=== PATIENT | male | born 1970 | race Hispanic/Latino ===

== ENCOUNTER 2017-07-22 14:18 | Emergency (ER) | payer OTHER ==
[2017-07-22 14:19] VITALS: BMI 24.3
[2017-07-22 15:39] VITALS: RESP 20
--- NOTE | 2017-07-22 17:34 | C.PDOC ---
History Of Present Illness PATIENT WAITING FOR OVER 3 HOURS IN THE WAITING AREA PRIOR TO MY EVALUATION. 47 year old male presents to the emergency department complaining of lower abdominal pain, ongoing for 3 days. Pain is localized to the suprapubic region, intermittent, and worsens with bowel movements. Pain is associated with nausea and diarrhea that is green in color. Of note, patient has been on doxycycline for 5 days, was recently diagnosed with syphilis. Denies any chest pain, shortness of breath, dizziness, fever, or urinary symptoms. Time Seen by Provider: 07/22/17 17:33 Chief Complaint (Nursing): Abdominal Pain History Per: Patient History/Exam Limitations: no limitations Onset/Duration Of Symptoms: Days (x3) Current Symptoms Are (Timing): Still Present Past Medical History Reviewed: Historical Data, Nursing Documentation, Vital Signs Vital Signs: Last Vital Signs Temp 98.7 F 07/22/17 15:36 Pulse 101 H 07/22/17 15:36 Resp 20 07/22/17 15:36 BP 116/78 07/22/17 15:36 Pulse Ox 96 07/22/17 17:58 - Medical History PMH: Asthma, HIV, Sexually Transmitted Disease (syphilis) Family History: States: Unknown Family Hx - Social History Hx Alcohol Use: No Hx Substance Use: No - Immunization History Hx Tetanus Toxoid Vaccination: Yes Hx Influenza Vaccination: Yes Hx Pneumococcal Vaccination: Yes Review Of Systems Except As Marked, All Systems Reviewed And Found Negative. Constitutional: Negative for: Fever Cardiovascular: Negative for: Chest Pain Respiratory: Negative for: Shortness of Breath Gastrointestinal: Positive for: Nausea, Abdominal Pain, Diarrhea. Negative for : Vomiting Neurological: Negative for: Dizziness Physical Exam - Physical Exam Appears: Non-toxic, In Acute Distress (moderate distress) Skin: Normal Color, Warm, Other (Good turgor) Head: Atraumatic, Normacephalic Eye(s): bilateral: Normal Inspection, PERRL, EOMI Oral Mucosa: Moist Neck: Normal ROM, Supple Chest: Symmetrical Cardiovascular: Rhythm Regular Respiratory: Normal Breath Sounds, No Rales, No Rhonchi, No Wheezing Gastrointestinal/Abdominal: Soft, Tenderness (to the bilateral lower quadrants and suprapubic region), Distention (mild distension and bloating), No Guarding, No Rebound Extremity: Bilateral: Atraumatic, Normal Color And Temperature Neurological/Psych: Oriented x3, Normal Speech ED Course And Treatment - Laboratory Results Result Diagrams: 07/22/17 17:54 07/22/17 17:54 O2 Sat by Pulse Oximetry: 96 (RA) Pulse Ox Interpretation: Normal Medical Decision Making Medical Decision Making: Time: 17:43 Initial Plan: * Labs * Sodium chloride IV 1000 ml at 250 mls/hr * Zofran 4 mg IV * Bentyl 20 mg IM * CT Abd/Pelvis with PO & IV contrast Disposition - Disposition Disposition Time: 19:00 Condition: STABLE Forms: [employer] (Faroese) - Clinical Impression Clinical Impression: Abdominal pain, Diarrhea, Nausea - Scribe Statement The provider has reviewed the documentation as recorded by the Noah Jerome Provider Attestation: All medical record entries made by the Derejeibpenny were at my direction and personally dictated by me. I have reviewed the chart and agree that the record accurately reflects my personal performance of the history, physical exam, medical decision making, and the department course for this patient. I have also personally directed, reviewed, and agree with the discharge instructions and disposition. Physician Patient Turnover Patient Signed Over To: Abbey Hawkins Handoff Comments: hailee ct, dispo
[2017-07-22] MEDS ORDERED: Sodium Chloride 0.9% 1,000 ML IV ONE (17:43)
[2017-07-22] MEDS ORDERED: Iohexol 240 (50 ml) PO STA (17:43)
[2017-07-22 17:58] LABS: BASO % 0.1 % (0.0-2.0); EOS # 0.2 K/uL (0.0-0.7); EOS % 3.8 % (0.0-4.0); HEMOGLOBIN 16.1 g/dL (12.0-18.0); LYMPH # 1.3 K/uL (1.0-4.3); LYMPH % 20.3 % (20.0-40.0); MEAN CELL VOLUME 87.9 fL (80.0-94.0); MEAN CORPUSCULAR HEMOGLOBIN 29.7 pg (27.0-31.0); MEAN CORPUSCULAR HGB CONC 33.8 g/dL (33.0-37.0); MEAN PLATELET VOLUME 8.8 fL (7.2-11.7); MONO # 0.3 K/uL (0.0-0.8); MONO % 4.1 % (0.0-10.0); NEUT # 4.7 K/uL (1.8-7.0); NEUT % 71.7 % (50.0-75.0); NRBC % 0.1 % (0.0-2.0); RBC 5.4 Mil/uL (4.40-5.90); RED CELL DISTRIBUTION WIDTH 13.4 % (11.5-14.5); WHITE BLOOD COUNT 6.5 K/uL (4.8-10.8)
[2017-07-22 18:11] LABS: URINE BACTERIA RARE (<OCC); URINE BILIRUBIN NEGATIVE (NEGATIVE); URINE BLOOD NEGATIVE (NEGATIVE); URINE CLARITY Clear (Clear); URINE COLOR Yellow (YELLOW); URINE GLUCOSE (UA) NORMAL (Normal); URINE LEUKOCYTE ESTERASE NEG Leu/uL (Negative); URINE NITRATE NEGATIVE (NEGATIVE); URINE PROTEIN NEGATIVE (NEGATIVE); URINE UROBILINOGEN NORMAL mg/dL (0.2-1.0)
[2017-07-22] MEDS ORDERED: Sodium Chloride 0.9% 1,000 ML ONE (18:12)
[2017-07-22] MEDS ORDERED: Iohexol 240 (50 ml) ONE (18:12)
[2017-07-22 18:16] LABS: ALB/GLOB RATIO 1.2 (1.0-2.1); ALBUMIN 4.2 g/dL (3.5-5.0); ALT/SGPT 48 U/L (21-72); AST/SGOT 34 U/L (17-59); BLOOD UREA NITROGEN 15 mg/dL (9-20); CALCIUM 9.3 mg/dl (8.6-10.4); GFR AFRICAN-AMERICAN > 60; GFR NON-AFRICAN AMERICAN > 60; LIPASE 78 U/L (23-300)
[2017-07-22] MEDS ORDERED: Iohexol 350mg/ml 100 ML ONE (19:39)
[2017-07-22 20:17] VITALS: BP 124/76; PULSE 83; TEMP 99.1; O2SAT 97
--- NOTE | 2017-07-23 08:42 | CT ---
CT abdomen and pelvis History: Lower abdominal pain. Diarrhea. Comparison: None available. Technique: Axial computed tomographic images of the abdomen and pelvis were performed with intravenous contrast. Subsequently, sagittal and coronal reformatted images were obtained. This CT exam was performed using one or more of the following dose reduction techniques: Automated exposure control, adjustment of the mA and/or kV according to patient size, and/or use of iterative reconstruction technique. Findings: Small hiatal hernia. Mild atelectasis in the lingula. Prominent liver with mild fatty infiltration. Gallbladder appears preserved. Pancreas appears preserved. Spleen appears preserved. Adrenals appear preserved. 6 millimeter hypodense lesion noted within the upper pole of the left kidney demonstrating a Hounsfield unit of 68, indeterminate. Mildly dilated loops of small bowel are noted diffusely throughout the abdomen. Stool in the colon. Scattered colonic diverticuli present. No findings to suggest acute appendicitis. Prostate measures 3.3 x 4.4 x 3.1 centimeters. Underdistended and or mildly thickened urinary bladder. 4 millimeter focal area of sclerosis noted within the left pubic bone adjacent to the pubic symphysis. 1.3 centimeter umbilical hernia containing fat. Degenerative changes in the spine. Impression: Mild ileus. Additional considerations may include a partial and or developing small bowel obstruction. Clinical correlation. 6 millimeter hypodense lesion in the upper pole of the left kidney not meeting CT criteria for simple cyst. Correlation with multiphasic abdominal CT or MR may be helpful if clinically indicated. Scattered colonic diverticuli. Small hiatal hernia. Small umbilical hernia. These findings were preliminarily reported at 8:39 p.m. on 07/22/[address] Inga Hill from [employer]
== END 2017-07-22 21:23 | disposition home or self-care (01) ==
LOC: C.ER 14:18
DX: R10.30 Lower abdominal pain, unspecified (principal); R19.7 Diarrhea, unspecified; R11.0 Nausea
CPT/HCPCS: 74177; 80053; 81001; 83690; 85025; 87045; 87230; 96372; 96374; 99285; J0500; J2405; J7040; Q9966; Q9967

== ENCOUNTER 2017-07-28 08:21 | Emergency (ER) | payer OTHER ==
[2017-07-28 08:27] VITALS: BMI 25.1
[2017-07-28] MEDS ORDERED: Sodium Chloride 0.9% 1,000 ML IV STA (08:53)
[2017-07-28] MEDS ORDERED: Sodium Chloride 0.9% 1,000 ML ONE (09:04)
[2017-07-28 09:23] LABS: URINE BACTERIA OCC (<OCC)
[2017-07-28 09:27] LABS: BASO % 0.9 % (0.0-2.0); EOS # 0.3 K/uL (0.0-0.7); EOS % 6.1 % (0.0-4.0); LYMPH # 2.5 K/uL (1.0-4.3); LYMPH % 54.3 % (20.0-40.0); MEAN CORPUSCULAR HEMOGLOBIN 30.4 pg (27.0-31.0); MEAN CORPUSCULAR HGB CONC 34.9 g/dL (33.0-37.0); MEAN PLATELET VOLUME 8.9 fL (7.2-11.7); MONO # 0.4 K/uL (0.0-0.8); MONO % 8.2 % (0.0-10.0); NEUT # 1.4 K/uL (1.8-7.0); NEUT % 30.5 % (50.0-75.0); NRBC % 0.2 % (0.0-2.0); RBC 4.94 Mil/uL (4.40-5.90); WHITE BLOOD COUNT 4.7 K/uL (4.8-10.8)
[2017-07-28 09:29] LABS: URINE BILIRUBIN NEGATIVE (NEGATIVE); URINE BLOOD NEGATIVE (NEGATIVE); URINE CLARITY Clear (Clear); URINE COLOR Yellow (YELLOW); URINE GLUCOSE (UA) NORMAL (Normal); URINE LEUKOCYTE ESTERASE NEG Leu/uL (Negative); URINE NITRATE NEGATIVE (NEGATIVE); URINE PROTEIN NEGATIVE (NEGATIVE)
[2017-07-28 09:43] LABS: ALB/GLOB RATIO 1.2 (1.0-2.1); ALT/SGPT 38 U/L (21-72); AST/SGOT 27 U/L (17-59); BLOOD UREA NITROGEN 13 mg/dL (9-20); CALCIUM 9.4 mg/dl (8.6-10.4); GFR AFRICAN-AMERICAN > 60; GFR NON-AFRICAN AMERICAN > 60
[2017-07-28] MEDS ORDERED: Iodixanol 320 MG/ML 100 ML BOTTLE IV ONE (11:02)
--- NOTE | 2017-07-28 11:14 | C.PDOC ---
History Of Present Illness 47 yr old male is call back. Patient was seen on in [facility] ER on July 22, had a CAT scan which showed some kidney lesions that were characterized clearly. Patient is called back for specific CAT scan for the kidneys. Patient denies fever, chills, nausea, vomiting, abdominal pain, diarrhea, dysuria, incontinence, hematuria, back pain, weakness or numbness. Time Seen by Provider: 07/28/17 08:50 Chief Complaint (Nursing): Abdominal Pain History Per: Patient History/Exam Limitations: no limitations Onset/Duration Of Symptoms: Days Past Medical History Reviewed: Historical Data, Nursing Documentation, Vital Signs Vital Signs: Last Vital Signs Temp 98.2 F 07/28/17 13:29 Pulse 62 07/28/17 13:29 Resp 20 07/28/17 13:29 BP 114/63 07/28/17 13:29 Pulse Ox 98 07/28/17 13:29 - Medical History PMH: Asthma, HIV, Sexually Transmitted Disease (syphilis) Family History: States: No Known Family Hx - Social History Hx Alcohol Use: No Hx Substance Use: No - Immunization History Hx Tetanus Toxoid Vaccination: Yes Hx Influenza Vaccination: Yes Hx Pneumococcal Vaccination: Yes Review Of Systems Except As Marked, All Systems Reviewed And Found Negative. Constitutional: Negative for: Fever, Chills Gastrointestinal: Negative for: Nausea, Vomiting, Abdominal Pain, Diarrhea Genitourinary: Negative for: Dysuria, Incontinence, Hematuria Musculoskeletal: Negative for: Back Pain Neurological: Negative for: Weakness, Numbness Physical Exam - Physical Exam Appears: Non-toxic, No Acute Distress Skin: Warm, Dry Eye(s): bilateral: Normal Inspection, PERRL, EOMI Oral Mucosa: Moist Cardiovascular: Rhythm Regular, No Murmur Respiratory: Normal Breath Sounds, No Rales, No Rhonchi, No Stridor, No Wheezing Gastrointestinal/Abdominal: Normal Exam, Soft, No Tenderness, No Guarding, No Rebound Back: No CVA Tenderness Extremity: Normal ROM, No Swelling Neurological/Psych: Oriented x3, Normal Speech ED Course And Treatment - Laboratory Results Result Diagrams: 07/28/17 09:20 07/28/17 09:20 O2 Sat by Pulse Oximetry: 97 (RA) Pulse Ox Interpretation: Normal - CT Scan/US CT - Abdomen/Pelvis Other Rad Studies (CT/US): Read By Radiologist, Radiology Report Reviewed CT/US Interpretation: PROCEDURE: CT Abdomen and Pelvis with and without intravenous contrast. HISTORY: prior abnormal CT, 3 phase urogramm. COMPARISON: None. TECHNIQUE: Axial images of the abdomen were obtained in the pre contrast, portal venous and delayed phases of enhancement. Coronal and sagittal reformats were generated. Contrast dose: 100 mL Visipaque 320. Radiation dose: Total exam DLP = 1889 mGy-cm. This CT exam was performed using one or more of the following dose reduction techniques: Automated exposure control, adjustment of the mA and/or kV according to patient size, and/ or use of iterative reconstruction technique. FINDINGS: LOWER THORAX: Right lower lobe subsegmental atelectasis. LIVER: Unremarkable. No gross lesion or ductal dilatation. GALLBLADDER AND BILE DUCTS: Unremarkable. PANCREAS: Unremarkable. No gross lesion or ductal dilatation. SPLEEN: Unremarkable. ADRENALS: Unremarkable. No mass. KIDNEYS AND URETERS: Left upper pole 6 mm too small to characterize nonenhancing hypoattenuating structure. No hydronephrosis. No solid mass. VASCULATURE: Unremarkable. No aortic aneurysm. BOWEL: Moderate hiatal hernia. No obstruction. No gross mural thickening. APPENDIX: Normal appendix. PERITONEUM: Small bilateral fat containing inguinal hernias. No free fluid. No free air. LYMPH NODES: Unremarkable. No enlarged lymph nodes. BLADDER: Unremarkable. REPRODUCTIVE: Unremarkable. BONES: No acute fracture. OTHER FINDINGS: None. IMPRESSION: Too small to characterize left upper pole 6 mm nonenhancing structure. Renal mass protocol MRI can be obtained for further characterization on a nonemergent, outpatient basis. Medical Decision Making Medical Decision Making: PLAN: * CT - Abdomen/Pelvis * Labs * Urinalysis * Sodium Chloride IV Disposition - Disposition Disposition: HOME/ ROUTINE Disposition Time: 12:55 Condition: STABLE Additional Instructions: Follow up with PMD within 1-2 days. Return to ED if feel worse. MRI of kidneys should be done as outpatient Instructions: CT Scan, Abdomen/Pelvis Forms: [employer] (Indonesian) - Clinical Impression Clinical Impression: Renal mass - PA / SM[employer] ENER[employer] SPECIALIST / Resident Statement MD/DO has reviewed & agrees with the documentation as recorded. - Scribe Statement The provider has reviewed the documentation as recorded by the Scribe Trina Huber All medical record entries made by the Scribe were at my direction and personally dictated by me. I have reviewed the chart and agree that the record accurately reflects my personal performance of the history, physical exam, medical decision making, and the department course for this patient. I have also personally directed, reviewed, and agree with the discharge instructions and disposition.
--- NOTE | 2017-07-28 12:33 | CT ---
PROCEDURE: CT Abdomen and Pelvis with and without intravenous contrast HISTORY: prior abnormal CT, 3 phase urogramm COMPARISON: None. TECHNIQUE: Axial images of the abdomen were obtained in the pre contrast, portal venous and delayed phases of enhancement. Coronal and sagittal reformats were generated. Contrast dose: 100 mL Visipaque 320 Radiation dose: Total exam DLP = 1889 mGy-cm. This CT exam was performed using one or more of the following dose reduction techniques: Automated exposure control, adjustment of the mA and/or kV according to patient size, and/or use of iterative reconstruction technique. FINDINGS: LOWER THORAX: Right lower lobe subsegmental atelectasis. LIVER: Unremarkable. No gross lesion or ductal dilatation. GALLBLADDER AND BILE DUCTS: Unremarkable. PANCREAS: Unremarkable. No gross lesion or ductal dilatation. SPLEEN: Unremarkable. ADRENALS: Unremarkable. No mass. KIDNEYS AND URETERS: Left upper pole 6 mm too small to characterize nonenhancing hypoattenuating structure. No hydronephrosis. No solid mass. VASCULATURE: Unremarkable. No aortic aneurysm. BOWEL: Moderate hiatal hernia. No obstruction. No gross mural thickening. APPENDIX: Normal appendix. PERITONEUM: Small bilateral fat containing inguinal hernias. No free fluid. No free air. LYMPH NODES: Unremarkable. No enlarged lymph nodes. BLADDER: Unremarkable. REPRODUCTIVE: Unremarkable. BONES: No acute fracture. OTHER FINDINGS: None. IMPRESSION: Too small to characterize left upper pole 6 mm nonenhancing structure. Renal mass protocol MRI can be obtained for further characterization on a nonemergent, outpatient basis.
[2017-07-28 13:30] VITALS: BP 114/63; PULSE 62; RESP 20; TEMP 98.2
[2017-07-28 16:56] VITALS: O2SAT 97
== END 2017-07-28 13:32 | disposition home or self-care (01) ==
LOC: C.ER 08:21
DX: N28.89 Other specified disorders of kidney and ureter (principal)
CPT/HCPCS: 74178; 80053; 81001; 85025; 96360; 99284; J7040; Q9967